=== PATIENT | male | born 1960 | race Caucasian/White ===

== ENCOUNTER 2018-04-09 07:36 | Inpatient (IN) | payer BC ==
[~2018-04-09] VITALS: Ht 188 cm; Wt 113.4 kg
[2018-04-09] MEDS ORDERED: CEFAZOLIN SOD 2 GM in D5W 50 ML IV ONE (09:30)
[2018-04-09] MEDS ORDERED: KETOROLAC TROMETHAMINE 30 MG VIAL IVP PRN (10:30)
[2018-04-09] MEDS ORDERED: ONDANSETRON HCL 4 MG/2 ML VIAL IVP PRN (10:30)
[2018-04-09] MEDS ORDERED: fentaNYL CITRATE/PF 100 MCG/2 ML AMP IVP PRN ×2 (10:30)
[2018-04-09] MEDS ORDERED: PROPOFOL 200MG/ 20ML VIAL (DIPRIVAN) IV ONE (10:51)
[2018-04-09] MEDS ORDERED: BUPIVACAINE /PF 0.25% 30 ML VIAL INJ ONE (10:51)
[2018-04-09] MEDS ORDERED: BUPIVACAINE LIPOSOME/PF 266 MG/20 ML VIAL INFIL ONE (10:51)
[2018-04-09] MEDS ORDERED: MIDAZOLAM HCL 5 MG/5 ML VIAL IVP ONE (10:51)
[2018-04-09] MEDS ORDERED: LR 1,000 ML IV.SOLN IV ONE (10:51)
[2018-04-09] MEDS ORDERED: POLYMYXIN 500,000/BACIT.10,000 UNITS in NS IRR 1 L IR ONE (11:07)
[2018-04-09] MEDS ORDERED: D5LR 1,000 ML IV SCH (12:24)
[2018-04-09] MEDS ORDERED: HYDROcodone/ACETAMIN 10-325 MG TAB PO PRN (12:30)
[2018-04-09] MEDS ORDERED: ONDANSETRON HCL 4 MG/2 ML VIAL ONE (12:30)
[2018-04-09] MEDS ORDERED: DIPHENHYDRAMINE HCL 25 MG CAPSULE PO PRN (12:30)
[2018-04-09] MEDS ORDERED: MORPHINE 4 MG/ML INJ. SYRINGE IVP PRN (12:30)
[2018-04-09] MEDS ORDERED: HYDROcodone/ACETAMIN 10-325 MG TAB ONE (16:24)
[2018-04-09] MEDS ORDERED: KETOROLAC TROMETHAMINE 30 MG VIAL ONE (16:36)
[2018-04-09] MEDS ORDERED: MORPHINE SULFATE 10 MG/ML VIAL ONE (17:29)
[2018-04-09 18:45] VITALS: BP_SYST 153
[2018-04-09 19:29] LABS: BASOPHILS # (AUTO) 0.2 K/uL (0.0-0.2); BASOPHILS % (AUTO) 1.8 % (0.0-2.0); EOSINOPHILS # (AUTO) 0.1 K/uL (0.0-0.4); EOSINOPHILS % (AUTO) 1.2 % (0.0-4.0); HEMATOCRIT 40.8 % (36-54); LYMPHOCYTES # (AUTO) 1.4 K/uL (1.0-5.5); MEAN CORPUSCULAR HEMOGLOBIN 33 pg (27-31); MEAN CORPUSCULAR HGB CONC 34 % (32-36); MEAN CORPUSCULAR VOLUME 95 fL (79.0-98.0); MONOCYTES # (AUTO) 0.3 K/uL (0.0-1.0); MONOCYTES % (AUTO) 2.9 % (1.7-9.3); NEUTROPHILS # (AUTO) 9.3 K/uL (1.8-7.7); NEUTROPHILS % (AUTO) 82.1 % (40.0-70.0); PLATELET COUNT (AUTO) 250 K/uL (130-430); RED CELL DISTRIBUTION WIDTH 12.4 % (9.0-15.0); WHITE BLOOD COUNT (AUTO) 11.3 K/uL (4.8-10.8)
[2018-04-09 19:44] LABS: CALCIUM 8.5 mg/dL (8.4-11.0); CREATININE 0.87 mg/dL (0.55-1.30); POTASSIUM 4.1 mmol/L (3.5-5.1)
[2018-04-09 19:50] LABS: ALBUMIN 3.2 g/dL (3.4-4.8); TOTAL BILIRUBIN 0.4 mg/dL (0.0-1.0)
[2018-04-09 21:50] VITALS: BP_SYST 156
[2018-04-09 22:00] VITALS: BP_SYST 156
[2018-04-09] MEDS ORDERED: ATROPINE SULFATE 0.5 MG/5 ML SYRINGE IVP PRN (22:00)
[2018-04-09 23:00] VITALS: BP_SYST 160
[2018-04-09] MEDS ORDERED: MORPHINE SULFATE 10 MG/ML VIAL IVP PRN (23:00)
[2018-04-09] MEDS ORDERED: LYR25 PO (23:45)
[2018-04-09] MEDS ORDERED: OXYC-133 PO (23:45)
[2018-04-09] MEDS ORDERED: WELSR150 PO (23:45)
[2018-04-10] VITALS (22 sets, daily range): BP systolic 119–158
[2018-04-10] MEDS ORDERED: ALBUTEROL SULFATE 0.083% 2.5 MG/3 ML VIAL.NEB INH PRN (00:45)
[2018-04-10 01:20] LABS: ANION GAP 7 (5-15); CALCIUM 8.1 mg/dL (8.4-11.0); CHLORIDE 103 mmol/L (98-107); CREATININE 0.97 mg/dL (0.55-1.30); GLUCOSE 126 mg/dL (70-99); SODIUM SERUM 136 mmol/L (136-145); UREA NITROGEN, BLOOD 25 mg/dL (8-21)
[2018-04-10 01:28] LABS: PHOSPHORUS 3.4 mg/dL (2.7-4.5)
[2018-04-10 01:30] LABS: GFR AFRICAN AMERICAN 103 mL/min (>90)
[2018-04-10] MEDS: MORPHINE SULFATE 10 MG/ML VIAL IVP PRN ×6 (02:27→23:30)
[2018-04-10 06:26] LABS: EOSINOPHILS # (AUTO) 0.1 K/uL (0.0-0.4); HEMOGLOBIN 13.5 g/dL (14.0-18.0); LYMPHOCYTES # (AUTO) 1.4 K/uL (1.0-5.5); LYMPHOCYTES % (AUTO) 13.3 % (20.5-51.5)
[2018-04-10 06:43] LABS: BASOPHILS # (AUTO) 0.1 K/uL (0.0-0.2); BASOPHILS % (AUTO) 0.6 % (0.0-2.0); HEMATOCRIT 39.4 % (36-54); MEAN CORPUSCULAR HEMOGLOBIN 33 pg (27-31); MEAN CORPUSCULAR HGB CONC 34 % (32-36); MEAN CORPUSCULAR VOLUME 95 fL (79.0-98.0); MONOCYTES % (AUTO) 9.6 % (1.7-9.3); NEUTROPHILS # (AUTO) 7.7 K/uL (1.8-7.7); NEUTROPHILS % (AUTO) 75.5 % (40.0-70.0); PLATELET COUNT (AUTO) 264 K/uL (130-430); RED BLOOD CELL COUNT(AUTO) 4.13 MIL/uL (4.2-6.2); RED CELL DISTRIBUTION WIDTH 12.4 % (9.0-15.0); WHITE BLOOD COUNT (AUTO) 10.3 K/uL (4.8-10.8)
[2018-04-10 07:19] LABS: ANION GAP 7 (5-15); SODIUM SERUM 135 mmol/L (136-145)
[2018-04-10 07:20] LABS: CHLORIDE 102 mmol/L (98-107); GLUCOSE 123 mg/dL (70-99)
[2018-04-10 07:21] LABS: CALCIUM 7.7 mg/dL (8.4-11.0); UREA NITROGEN, BLOOD 22 mg/dL (8-21)
[2018-04-10 07:22] LABS: CREATININE 0.85 mg/dL (0.55-1.30); GFR AFRICAN AMERICAN 120 mL/min (>90)
[2018-04-10 07:23] LABS: ALANINE AMINOTRANSFERASE 29 U/L (12-78); ASPARTATE AMINOTRANSFERASE 23 U/L (10-37); TOTAL BILIRUBIN 0.7 mg/dL (0.0-1.0)
[2018-04-10 07:24] LABS: ALBUMIN 3.1 g/dL (3.4-4.8); PHOSPHORUS 3.4 mg/dL (2.7-4.5)
[2018-04-10] MEDS: PREGABALIN 25 MG CAPSULE (LYRICA) PO SCH ×2 (08:58→21:20)
[2018-04-10] MEDS ORDERED: COMMUNICATION ORDER XX ONE ×2 (09:00→14:15)
[2018-04-10] MEDS ORDERED: buPROPion HCL 150 MG TABLET.SA PO SCH (09:00)
[2018-04-10] MEDS ORDERED: ASPIRIN 81 MG TABLET(ECOTRIN) PO SCH ×2 (09:00)
[2018-04-10] MEDS ORDERED: PREGABALIN 75 MG CAPSULE (LYRICA) PO SCH (09:00)
[2018-04-10] MEDS: buPROPion HCL 150 MG XL TAB PO SCH (09:21)
[2018-04-10] MEDS ORDERED: DOCUSATE SODIUM 100 MG CAPSULE PO ONE (12:45)
[2018-04-10] MEDS: DOCUSATE SODIUM 100 MG CAPSULE PO SCH ×2 (13:09→21:20)
[2018-04-10] MEDS: CEPHALEXIN 500 MG PO SCH ×2 (17:52→23:36)
[2018-04-10] MEDS ORDERED: CEPHALEXIN 500 MG CAPSULE PO SCH (18:00)
[2018-04-11] MEDS: MORPHINE SULFATE 10 MG/ML VIAL IVP PRN ×4 (03:21→12:22)
[2018-04-11 03:49] VITALS: BP_SYST 124
[2018-04-11] MEDS: CEPHALEXIN 500 MG PO SCH ×2 (06:39→11:52)
[2018-04-11] MEDS: PREGABALIN 25 MG CAPSULE (LYRICA) PO SCH (08:28)
[2018-04-11] MEDS: DOCUSATE SODIUM 100 MG CAPSULE PO SCH (08:29)
[2018-04-11] MEDS: buPROPion HCL 150 MG XL TAB PO SCH (08:29)
[2018-04-11 08:32] VITALS: BP_SYST 133
[2018-04-11] MEDS ORDERED: POLYETHYLENE GLYCOL 3350, 17 GM/ POWD.PACK PO ONE (11:00)
[2018-04-11 11:09] VITALS: BP_SYST 123
[2018-04-11] MEDS ORDERED: CEPH-568 PO (11:16)
[2018-04-11 12:01] VITALS: BP_SYST 123
[2018-04-12] MEDS ORDERED: POLYETHYLENE GLYCOL 3350, 17 GM/ POWD.PACK PO SCH (09:00)
== END 2018-04-11 14:10 | disposition home or self-care (01) | DRG 502 ==
LOC: SDS 07:36 → STU 18:05 → SIC 20:03 → SDS 04-10 09:22 → STU 04-10 20:29
PROVIDERS: ADMIT Internal Medicine Hospice and Palliative Medicine; ATTEND Internal Medicine Hospice and Palliative Medicine
PROC: 0LQL0ZZ Repair Right Upper Leg Tendon, Open Approach (ICD-10-PCS; principal; 2018-04-09 11:00)
DX: S76.111A Strain of right quadriceps muscle, fascia and tendon, initial encounter (principal); I10 Essential (primary) hypertension; G89.29 Other chronic pain; J44.9 Chronic obstructive pulmonary disease, unspecified; F32.9 Major depressive disorder, single episode, unspecified; I44.1 Atrioventricular block, second degree; F17.210 Nicotine dependence, cigarettes, uncomplicated; F41.9 Anxiety disorder, unspecified; W18.40XA Slipping, tripping and stumbling without falling, unspecified, initial encounter; Y92.89 Other specified places as the place of occurrence of the external cause; Y93.89 Activity, other specified; Y99.8 Other external cause status; Z98.1 Arthrodesis status; Z81.8 Family history of other mental and behavioral disorders; Z82.49 Family history of ischemic heart disease and other diseases of the circulatory system; Z88.1 Allergy status to other antibiotic agents
CPT/HCPCS: 36415; 71045; 80048; 80053; 83735-TC; 84100-TC; 84484; 85025; 87081; 93005; 93306; 97110-GP; 97116-GP; 97530-GP; C9290; J0690; J1885; J2250; J2270; J2405; J2704; J3490; J7060; J7120; L1830